=== PATIENT | male | born 1945 | race Caucasian/White ===

== ENCOUNTER → 2017-05-25 08:08 | Outpatient (CLI) | payer MEDICARE ==
[2014-07-14 10:56] VITALS: BMI 29.4
[~2017-05-25 08:08] MED LIST: APIDRA SOL100 UNIT/1 SQ; APIDRA100 U/M1 SQ; ASPIRIN 81 MG E81 MG PO; ASPIRIN325 MG PO; BAYER CHEWABLE81 MG PO; CORDARONE200 MG PO; COREG6.25 MG PO; GLIPIZIDE10 MG PO; GLUCOPHAGE1000 MG PO; GLUCOSAMINE & C1 CAP PO; HUMULIN R100 U/ML SC; JANUVIA100 MG PO; K-DUR20 MEQ PO; LANTUS INSULIN10 ML SC; LASIX40 MG PO; NORCO 10/325 TA1 TA1 PO; OMNICEF300 MG PO; PLAVIX75 MG PO; PRAVACHOL40 MG PO; SENOKOT-S TABLE1 TAB PO; TOPROL XL100 MG PO; TYLENOL 325 MG325 MG PO; ULTRAM50 MG PO; VASOTEC10 MG PO; ZANTAC150 MG PO; ZESTORETIC 20/11 TAB PO; ZITHROMAX500 MG PO
[2017-05-25 08:28] LABS: BASOPHILS 1.2 % (0-2); EOSINOPHILS 6.3 % (0-7); HEMATOCRIT 42.2 % (42.0-54.0); IMMATURE GRANULOCYTES 0.1 % (0-5); LYMPHOCYTES 44.4 % (15-50); MCH 30.4 pg (26.0-34.0); MCHC 33.2 g/dL (31.0-37.0); MCV 91.5 fL (80.0-100.0); MEAN PLATELET VOLUME 11.7 fL (7.4-10.4); MONOCYTES 12.3 % (2-11); NEUTROPHILS 35.7 % (40-80); PLATELET COUNT 209 10x3/uL (130-400); RBC 4.61 10x6/uL (4.20-6.10); RDW 13.2 % (11.5-14.5); WBC 8.7 10x3/uL (4.8-10.8)
[2017-05-25 08:39] LABS: APPEARANCE CLEAR (CLEAR); BILIRUBIN NEGATIVE (NEGATIVE); COLOR YELLOW (YELLOW); GLUCOSE NEGATIVE (NEGATIVE); KETONE MODERATE mg/dL (NEGATIVE); LEUKOCYTE ESTERASE NEGATIVE (NEGATIVE); NITRITE NEGATIVE (NEGATIVE); PROTEIN NEGATIVE (NEGATIVE); SPECIFIC GRAVITY 1.015 (1.005-1.020)
[2017-05-25 09:08] LABS: ALBUMIN 3.9 g/dL (3.4-5.0); ALKALINE PHOSPHATASE 87 U/L (46-116); ALT (SGPT) 56 U/L (10-68); BILIRUBIN - TOTAL 0.56 mg/dL (0.2-1.3); CALCIUM 9.1 mg/dL (8.5-10.1); CARBON DIOXIDE 29.7 mmol/L (21.0-32.0); CHLORIDE - SERUM 105 mmol/L (98-107); CHOL - HDL RATIO 3.1 ratio (2.3-4.9); CHOLESTEROL, TOTAL 127 mg/dL (0-200); CREATININE - SERUM 0.9 mg/dL (0.6-1.3); HDL CHOLESTEROL 41 mg/dL (32-96); LDL CHOLESTEROL 67 mg/dL (0-100); LDL-HDL RATIO 1.6 ratio (1.5-3.5); POTASSIUM - SERUM 3.9 mmol/L (3.5-5.1); PROTEIN - SERUM 7.9 g/dL (6.4-8.2); SODIUM 143 mmol/L (136-145); THYROID STIMULATING HORMONE 2.13 uIU/mL (0.36-3.74); TRIGLYCERIDE 96 mg/dL (30-200); UREA NITROGEN 19 mg/dL (7-18); eGFR NON AFRICAN AMERICAN 89 mL/min (90-120)
[2017-05-25 09:10] LABS: CALC OSMOLALITY 288 mosm/kg (275-300); GLUCOSE 136 mg/dL (74-106)
== END | disposition home or self-care (01) ==
LOC: D.LAB 08:08
PROVIDERS: Family Medicine
DX: Z00.00 Encounter for general adult medical examination without abnormal findings (principal); Z12.5 Encounter for screening for malignant neoplasm of prostate; I10 Essential (primary) hypertension; E78.5 Hyperlipidemia, unspecified; E11.9 Type 2 diabetes mellitus without complications; I25.10 Atherosclerotic heart disease of native coronary artery without angina pectoris

== ENCOUNTER 2018-01-20 05:52 | Outpatient (CLI) | payer MEDICARE ==
[~2018-01-20] VITALS: Ht 182.9 cm; Wt 86.4 kg
--- NOTE | ~2018-01-20 | HEMODYNAMI ---
PATIENT:AGUILA YBARRA MEDICAL RECORD: [id number] : 49 LOCATION:[facility] ADMISSION DATE: 01/20/18 Generatedon:01/20/20188:24 Patient name: AGUILA YBARRA Patient #: [id number] SSN: DO B: 1945 Date of study: 01/20/2018 Page: Of Hemodynamic Procedure Report Patient Data Patient Demographics Procedure consent was obtained First Name: AGUILA Gender: Male Last Name: AMADA : 1945 Middle Initial: A Age: 72 year(s) Patient #: [id number] Race: Unknown Additional ID: [id number] Contact details Address: [address] [place] [address] [facility] [place] [facility] Zip code: [address] Past Medical History Allergies: No known allergies Admission Admission Data Admission Date: 01/20/2018 Admission Time: 5:52 Height (in.): 72 BSA: 2.09 (m2) Height (cm.): 182.88 BMI: 25.82 (kg/m2) Weight (lbs.): 190.39 Weight (kg.): 86.36 Lab Results Lab Result Date: 01/20/2018 Lab Result Time: 0:00 Biochemistry Name Units Result Min Max BUN mg/dl 26 --(----)-* 7 18 Creatinine mg/dl 1 --(--*-)-- 0.6 1.3 CBC Name Units Result Min Max Hemoglobin g/dl 14.6 --(-*--)-- 13.5 17.5 Platelets 10^3/l 184 --(*---)-- 130 400 Procedure Procedure Types Cath Procedure Peripheral Cath Diagnostic Procedure Cath Peripheral Gtljc-Bdseewj-Gbh-Off Procedure Description Procedure Date Procedure Date: 01/20/2018 Procedure Start Time: 8:07 Procedure End Time: 8:23 Procedure Staff Name Function Arden Vu MD Performing Physician Bradley Zelaya RT Monitor Katrina Hurtado RT Scrub Lawrence Jovel RN Nurse Valdemar Fisher RN Nurse Procedure Data Cath Procedure Fluoroscopy Diagnostic fluoroscopy Total fluoroscopy Time: 1.2 time: 1.2 min min Diagnostic fluoroscopy Total fluoroscopy dose: 230 dose: 230 mGy mGy Contrast Material Contrast Material Type Amount (ml) Isovue 300 90 Entry Location Entry Primary Successful Side Size Upsize Upsize Entry Closure Succes sful Closure Location (Fr) 1 (Fr) 2 (Fr) Remarks Device Remarks Femoral Right 5 Fr Exoseal artery Estimated blood loss: 10 ml Diagnostic catheters Device Type Used For End Catheter Placement DIAGNOSTIC UF 5Fr Procedure catheter ([id number]) Procedure Complications No complications Procedure Medications Medication Administration Route Dosage Oxygen etCO2 Nasal cannula 2 l/min Heparin Flush Bag added to field 2 bags (1000units/500ml NS) 0.9% NaCl I.V. 100 ml/hr Fentanyl I.V. 50 mcg Versed I.V. 1 mg Fentanyl I.V. 25 mcg Versed I.V. 0.5 mg Fentanyl I.V. 25 mcg Versed I.V. 0.5 mg Hemodynamics Rest BSA: 2.09 (m2) HGB: 14.6 (g/dl) O2 Consumption: Estimated: 236.38 (ml/min) O2 Co nsumption indexed: Estimated:113.1 (ml/min/m) Heart Rate: 63 (bpm) Pressure Samples Time Site Value (mmHg) Purpose Heart Use Rate(bpm) 8:10 AO 177/76(114) Snapshot 65 8:13 AO 124/58(83) Snapshot 63 Snapshots Pre Cath Intra NCS Post Cath Vital Signs Time Heart Resp SPO2 etCO2 NIBP (mmHg) Rhythm Pain Sedation Rate (ipm) (%) (mmHg) Status Level (bpm) 7:51:21 64 16 96 0 153/82(109) NSR 0 (11) 10(A) , No pain 7:56:04 61 16 98 27.8 150/82(129) NSR 0 (11) 10(A) , No pain 8:01:21 63 15 100 33.8 164/83(134) NSR 0 (11) 9(A) , No pain 8:06:02 64 16 100 20.3 146/81(119) NSR 0 (11) 9(A) , No pain 8:11:23 62 17 100 38.3 163/84(144) NSR 0 (11) 9(A) , No pain 8:16:04 73 17 100 1.5 141/84(93) NSR 0 (11) 9(A) , No pain 8:19:35 64 6 40.6 154/88(133) NSR 0 (11) 9(A) , No pain Medications Time Medication Route Dose Verified Delivered Reason Notes Effec tiveness by by 7:55:51 Oxygen etCO2 2 Arden Lawrence Per Nasal l/min Horace Jovel RN physician cannula 7:56:07 Heparin Flush added 2 Arden Lawrence used for Bag to bags Horace Jovel safety compliance specialist (1000units/500ml field NS) 7:56:30 0.9% NaCl I.V. 100 Arden Lawrence Per ml/hr Horace Jovel RN physician 8:00:03 Fentanyl I.V. 50 Arden Lawrence for mcg Horace Jovel RN sedation 8:00:10 Versed I.V. 1 mg Arden Lawrence for Horace Jovel RN sedation 8:07:34 Fentanyl I.V. 25 Arden Lawrence for mcg Horace Jovel RN sedation 8:07:41 Versed I.V. 0.5 Arden Lawrence for mg Horace Jovel RN sedation 8:09:40 Fentanyl I.V. 25 Arden Lawrence for mcg Horace Jovel RN sedation 8:09:45 Versed I.V. 0.5 Arden Lawrence for mg Horace Jovel RN sedation Procedure Log Time Note 7:24:07 Time tracking: Regular hours (M-F 7:00 - 5:00) 7:24:11 Plan of Care:Hemodynamics will remain stable., Cardiac rhythm will remain stable., Comfort level will be maintained., Respiratory function will remain adequate., Patient/ family verbilizes understanding of procedure., Procedure tolerated without complication., Recovers from procedure without complications.. 7:24:13 Signed procedure consent form obtained from patient. 7:24:20 H&P Date Dictated: 01/14/2018 Within 30 days and on chart., H&P Addendum completed by physician on day of procedure. (MUST COMPLETE FOR ALL OUTPATIENTS). 7:30:41 Bradley LOCKWOOD(R) sent for patient. Start room use. 7:36:36 Patient allergic to No known allergies 7:44:33 Patient received from Pre/Post Procedure Room to CCL 1 Alert and oriented. Tansferred to table in Supine position. 7:44:35 Warm blankets applied, and richard hugger turned on for patient comfort. 7:44:36 Correct patient and procedure confirmed by team. 7:44:36 ECG and BP/O2 sat monitors applied to patient. 7:49:27 Pre-procedure instructions explained to patient. 7:49:28 Pre-op teaching completed and patient verbalized understanding. 7:49:30 Family in patients room. 7:49:31 Patient NPO since Midnight. 7:49:34 Is the patient allergic to Iodine/contrast media? No. 7:49:35 Is patient on blood thinner?No 7:49:40 Patient diabetic? Yes. 7:49:41 If diabetic: On Metformin? Yes 7:49:45 If on Metformin: Last Dose? 01/17/2018 7:49:48 Previous problem with sedation/anesthesia? No ? 7:49:49 Snore? Yes 7:49:50 Sleep apnea? No 7:49:51 Deviated septum? No 7:49:52 Opens mouth fully? Yes 7:49:53 Sticks out tongue? Yes 7:49:54 Airway obstruction? No ? 7:49:56 Dentures? No ? 7:49:59 Pre procedure: right dorsailis pedis pulse 1+ Palpable, but thready & weak; easily obliterated 7:49:59 Vital chart was started 7:50:02 Vital chart was stopped 7:50:03 Pre procedure: left dorsailis pedis pulse 2+ Normal; easily identifiable; not easily obliterated 7:50:18 Patient pain scale 0/10 ?. 7:50:26 Vital chart was started 7:50:29 IV patent on arrival in left forearm with 0.9% NaCl at KVO. 7:50:35 Lab results completed and on chart. 7:50:57 Bilateral groins area was prepped with chlora-prep and draped in sterile fashion 7:50:58 Alarms reviewed by R. N. 7:50:59 Sharps counted by scrub and verified by R.N. 7:51:52 Use device set Femoral Dx 7:51:54 PERCUTANEOUS ENTRY 19GA needle opened to sterile field. 7:51:55 Tegaderm 4 x 4 (1626W) opened to sterile field. 7:51:56 ACIST Manifold (16717) opened to sterile field. 7:51:57 ACIST Hand Control (47673) opened to sterile field. 7:51:58 ACIST Syringe (98683) opened to sterile field. 7:51:59 Bag Decanter (2001S) opened to sterile field. 7:51:59 Medline Cath Pack ([id number]) opened to sterile field. 7:52:00 DIAGNOSTIC WIRE .035 260cm J wire (539893) opened to sterile field. 7:52:01 SHEATH Prelude 5Fr 0.035 ([id number]-5Y-[id number]) opened to sterile field. 7:54:29 Baseline sample Acquired. 7:54:49 Rhythm: sinus rhythm 7:54:52 Full Disclosure recording started 7:55:51 Oxygen 2 l/min etCO2 Nasal cannula was administered by Lawrence Jovel RN; Per physician; 7:56:07 Heparin Flush Bag (1000units/500ml NS) 2 bags added to field was administered by Lawrence Jovel RN; used for procedure; 7:56:30 0.9% NaCl 100 ml/hr I.V. was administered by Lawrence Jovel RN; Per physician; 7:56:34 Lab Result : Hemoglobin 14.6 g/dl 7:56:34 Lab Result : Platelets 184 10^3/l 7:56:34 Lab Result : BUN 26 mg/dl 7:56:34 Lab Result : Creatinine 1 mg/dl 7:56:42 Patient Height : 72 inches 7:56:47 Patient Weight : 190.39 lbs 7:59:27 --------ALL STOP TIME OUT------ 7:59:28 Final Timeout: patient, procedure, and site verified with staff and physician. All members of the team are in agreement. 7:59:36 Bilateral groins site verified by team. 7:59:41 Physical assessment completed. ASA score P 2 - A patient with mild systemic disease as per Aredn Vu MD. 7:59:47 Sedation plan: IV Moderate Sedation Medication:Versed, Fentanyl 8:00:03 Fentanyl 50 mcg I.V. was administered by Lawrence Jovel RN; for sedation; 8:00:10 Versed 1 mg I.V. was administered by Lawrence Jovel RN; for sedation; 8:04:49 Zero performed for pressure channel P1 8:07:06 Procedure started. 8:07:10 Local anesthetic to right femoral artery with Lidocaine 2% by Arden Vu MD.INITIAL ACCESS ONLY 8:07:34 Fentanyl 25 mcg I.V. was administered by Lawrence Jovel RN; for sedation; 8:07:41 Versed 0.5 mg I.V. was administered by Lawrence Jovel RN; for sedation; 8::34 A 5 Fr sheath was inserted into the Right Femoral artery 8:09:40 Fentanyl 25 mcg I.V. was administered by Lawrence Jovel RN; for sedation; 8:09:45 Versed 0.5 mg I.V. was administered by Lawrence Jovel RN; for sedation; 8:10:04 A DIAGNOSTIC UF 5Fr catheter ([id number]) was advanced over the wire and used for Procedure. 8:11:08 Abdominal Aortagram was performed. 8:12:16 Left leg runoff performed. 8:13:43 Right leg runoff performed. 8:16:17 Catheter removed. 8:16:20 EXOSEAL 5Fr (EX500) opened to sterile field. 8:16:37 Sheath removed intact; hemostasis achieved with Exoseal to the Right Femoral artery. 8:16:49 Procedure ended.(Physican Out) 8:22:11 Fluoroscopy time 01.20 minutes. 8:22:14 Fluoroscopy dose: 230 mGy 8:22:14 Flurop Dose total: 230 8:22:18 Contrast amount:Isovue 300 90ml. 8:22:19 Sharps counted by scrub and verified by R.N. 8:22:33 Insertion/operative site no bleeding no hematoma. 8:22:39 Post-op/insertion site Right Femoral artery dressed using a 4 x 4 and Tegaderm. 8:22:41 Post Procedure Pulses reassessed and unchanged 8:22:45 Post-procedure physical assessment completed. ASA score P 2 - A patient with mild systemic disease as per Arden Vu MD. 8:22:48 Post procedure rhythm: unchanged. 8:22:51 Estimated blood loss: 10 ml 8:22:53 Post procedure instruction explained to patient.Patient verbalizes understanding. 8:22:53 Patient needs reinforcement of post procedure teaching. 8:23:02 Procedure and supply charges have been captured, reviewed, submitted and are correct. 8:23:05 Procedure Complication : No complications 8:23:31 See physician's report for complete and final results. 8:23:33 Report given to Pre/Post Procedure Room. 8:23:36 Patient transfered to Pre/Post Procedure Room with Stretcher. 8:23:38 Procedure ended. 8:23:38 Full Disclosure recording stopped 8:23:42 End room use (Document Last) 8:24:15 Vital chart was stopped Device Usage Item Name Manufacture Quantity Catalog Number Hospital Part Current M inimal Lot# / Charge Number Stock Stock Serial# Code PERCUTANEOUS [employer] 1 [id number] 5 ENTRY 19GA needle Tegaderm 4 x 4 3M 1 1626W 190570 708909 254639 5 (1626W) ACIST Manifold Acist 1 22972 815026 846236 812212 5 (54954) [employer] ACIST Hand Acist 1 90681 390512 515886 423173 5 Control (34375) [employer] ACIST Syringe Acist 1 69481 259349 398202 848510 2 0 (55484) [employer] Bag Decanter Microtek 1 2002S 473153 35172 981667 5 (2002S) Medical Inc. Medline Cath Cardinal 1 [id number] 537964 93743 832710 5 Pack Health ([id number]) DIAGNOSTIC WIRE [facility] 1 912645 909527 231651 442667 3 0 .035 260cm J wire (846835) SHEATH Prelude Merit 1 SVC-9V-49-035 642305 149703 611728 5 5Fr 0.035 Medical (EPT-5V-62-035) DIAGNOSTIC UF Cardinal 1 [id number] 768374 899168 469387 1 0 5Fr catheter Health (608912N3) EXOSEAL 5Fr Cardinal 1 EX500 613562 739713 735093 1 0 (EX500) Health Signature Audit [place] Stage Time Signature Unsigned Intra-Procedure 01/20/2018 Bradley Zelaya 8:24:12 AM RT(R) Signatures Monitor : Bradley Zelaya RT Signature : Date : Time : [id number] [place] [address]
[2018-01-20] MEDS ORDERED: LEVEMIR100 U/M1 SC (06:38)
[2018-01-20] MEDS ORDERED: GLUCOPHAGE500 MG PO (06:40)
[2018-01-20 06:54] VITALS: BP 169/85; Ht 182.9 cm; Wt 86.4 kg
[2018-01-20 07:30] LABS: BASOPHILS 1.4 % (0-2); EOSINOPHILS 5.8 % (0-7); HEMATOCRIT 44.5 % (42.0-54.0); HEMOGLOBIN 14.6 g/dL (13.5-17.5); IMMATURE GRANULOCYTES 0.4 % (0-5); LYMPHOCYTES 37.9 % (15-50); MCH 28.7 pg (26.0-34.0); MCHC 32.8 g/dL (31.0-37.0); MCV 87.4 fL (80.0-100.0); MEAN PLATELET VOLUME 12.6 fL (7.4-10.4); MONOCYTES 10.9 % (2-11); NEUTROPHILS 43.6 % (40-80); PLATELET COUNT 184 10x3/uL (130-400); RBC 5.09 10x6/uL (4.20-6.10); RDW 14.2 % (11.5-14.5); WBC 9.6 10x3/uL (4.8-10.8)
[2018-01-20 07:41] LABS: CALC OSMOLALITY 284 mosm/kg (275-300); CARBON DIOXIDE 27.5 mmol/L (21.0-32.0); CHLORIDE - SERUM 100 mmol/L (98-107); GLUCOSE 309 mg/dL (74-106); SODIUM 134 mmol/L (136-145); UREA NITROGEN 26 mg/dL (7-18); eGFR NON AFRICAN AMERICAN 78 mL/min (90-120)
== END 2018-01-20 11:00 | disposition home or self-care (01) ==
LOC: D.CATH 05:52
PROVIDERS: Internal Medicine Cardiovascular Disease
DX: M79.605 Pain in left leg (principal); M79.604 Pain in right leg; Z01.812 Encounter for preprocedural laboratory examination

== ENCOUNTER → 2018-02-28 13:45 | Outpatient (CLI) | payer MEDICARE ==
[2018-01-20 06:54] VITALS: BMI 25.8
[~2018-02-28 13:45] MED LIST changes: +GLUCOPHAGE500 MG PO; +LEVEMIR100 U/M1 SC
== END | disposition home or self-care (01) ==
LOC: D.US 13:45
DX: I65.23 Occlusion and stenosis of bilateral carotid arteries (principal)

== ENCOUNTER → 2018-11-21 14:29 | Outpatient (CLI) | payer MEDICARE ==
[2018-01-20 06:54] VITALS: BMI 25.8
== END | disposition home or self-care (01) ==
LOC: D.CT 14:29
PROVIDERS: ATTEND Family Medicine
DX: J98.59 Other diseases of mediastinum, not elsewhere classified (principal)

== ENCOUNTER → 2018-11-25 09:08 | Outpatient (CLI) | payer MEDICARE ==
[2018-01-20 06:54] VITALS: BMI 25.8
== END | disposition home or self-care (01) ==
LOC: D.HCCARDIO 09:08
PROVIDERS: ATTEND Internal Medicine Cardiovascular Disease
DX: I25.709 Atherosclerosis of coronary artery bypass graft(s), unspecified, with unspecified angina pectoris (principal)

== ENCOUNTER → 2018-12-07 10:56 | Outpatient (CLI) | payer MEDICARE ==
[~2018-12-07] VITALS: Ht 182.9 cm; Wt 96.4 kg
--- NOTE | ~2018-12-07 | HEMODYNAMI ---
PATIENT:AGUILA YBARRA MEDICAL RECORD: [id number] : 49 LOCATION:[facility] ADMISSION DATE: 12/07/18 Generatedon:12/07/201814:11 Patient name: AGUILA YBARRA Patient #: [id number] SSN: DO B: 1945 Date of study: 12/07/2018 Page: Of Hemodynamic Procedure Report Patient Data Patient Demographics Procedure consent was obtained First Name: AGUILA Gender: Male Last Name: AMADA : 1945 Middle Initial: A Age: 73 year(s) Patient #: [id number] Race: Unknown Additional ID: [id number] Contact details Address: [address] [place] [address] State: [place] City: [place] Zip code: [address] Past Medical History Allergies: No known allergies Admission Admission Data Admission Date: 12/07/2018 Admission Time: 10:56 Height (in.): 71.65 BSA: 2.18 (m2) Height (cm.): 182 BMI: 29.03 (kg/m2) Weight (lbs.): 212 Weight (kg.): 96.16 Lab Results Lab Result Date: 12/07/2018 Lab Result Time: 0:00 Biochemistry Name Units Result Min Max BUN mg/dl 16 --(---*)-- 7 18 Creatinine mg/dl 0.9 --(-*--)-- 0.6 1.3 CBC Name Units Result Min Max Hematocrit % 41.8 -*(----)-- 42 54 Hemoglobin g/dl 13.8 --(*---)-- 13.5 17.5 Procedure Procedure Types Cath Procedure Diagnostic Procedure LHC LHC w/Coronaries w/Grafts Sedation Charges Moderate Sedation up to 15 minutes Procedure Description Procedure Date Procedure Date: 12/07/2018 Procedure Start Time: 13:46 Procedure End Time: 14:09 Procedure Staff Name Function Arden Vu MD Performing Physician Katrina Hurtado RT Monitor Tahmina Cordero RN Nurse Bradley Zelaya RT Scrub Procedure Data Cath Procedure Fluoroscopy Diagnostic fluoroscopy Total fluoroscopy Time: 3.3 time: 3.3 min min Diagnostic fluoroscopy Total fluoroscopy dose: dose: 488.13 mGy 488.13 mGy Contrast Material Contrast Material Type Amount (ml) Isovue 300 118 Entry Location Entry Primary Successful Side Size Upsize Upsize Entry Closure Succes sful Closure Location (Fr) 1 (Fr) 2 (Fr) Remarks Device Remarks Femoral Right 5 Fr Exoseal artery Estimated blood loss: 10 ml Diagnostic catheters Device Type Used For End Catheter Placement MULTIPACK JL 4.0 5Fr Procedure catheter DIAGNOSTIC AR MOD 5Fr Procedure Catheter ([id number]) DIAGNOSTIC IM 5Fr Procedure catheter ([id number]) MULTIPACK Pigtail 5 Fr Procedure catheter Procedure Complications No complications Procedure Medications Medication Administration Route Dosage 0.9% NaCl I.V. 100 ml/hr Oxygen etCO2 Nasal cannula 2 l/min Lidocaine 2% added to field 20 Heparin Flush Bag added to field 2 bags (1000units/500ml NS) Versed I.V. 2 mg Fentanyl I.V. 50 mcg Versed I.V. 2 mg Fentanyl I.V. 50 mcg Hemodynamics Rest BSA: 2.18 (m2) HGB: 13.8 (g/dl) O2 Consumption: Estimated: 246.02 (ml/min) O2 Co nsumption indexed: Estimated:112.85 (ml/min/m) Heart Rate: 63 (bpm) Pressure Samples Time Site Value (mmHg) Purpose Heart Use Rate(bpm) 14:03 LV 135/4,13 Snapshot 59 14:05 AO 143/65(93) Pullback 59 14:05 LV 139/9,19 Pullback 59 Gradients Valve Time Site 1 Site 2 Mean SEP/DFP Peak To Heart Use (mmHg) (sec/min) Peak Rate (mmHg) (bpm) Aortic 14:05 LV AO 0 5 0 59 139/9,19 143/65(93) Calculations Valve P-P Mean Valve Index Valve Source Name Gradient Area Flow (cm2) Aortic 0 0 0 0 Snapshots Pre Cath Intra NCS Post Cath Vital Signs Time Heart Resp SPO2 etCO2 NIBP (mmHg) Rhythm Pain Sedation Rate (ipm) (%) (mmHg) Status Level (bpm) 13:33:51 62 16 98 31 157/88(131) NSR 0 (11) 10(A) , No pain 13:38:29 60 13 98 30 152/82(127) NSR 0 (11) 10(A) , No pain 13:42:57 62 16 96 20 140/85(123) NSR 0 (11) 10(A) , No pain 13:47:23 60 10 98 32.5 142/82(118) NSR 0 (11) 9(A) , No pain 13:51:52 59 14 98 18.1 135/77(114) SB 0 (11) 9(A) , No pain 13:56:20 59 17 98 40.1 148/80(124) SB 0 (11) 9(A) , No pain 14:01:44 59 18 96 15.9 144/78(122) SB 0 (11) 9(A) , No pain 14:06:08 59 17 97 30.2 139/79(111) SB 0 (11) 10(A) , No pain 14:10:36 58 7 98 36.3 139/80(120) SB 0 (11) 10(A) , No pain Medications Time Medication Route Dose Verified Delivered Reason Notes Eff ectiveness by by 13:32:43 0.9% NaCl I.V. 100 Arden Tahmina used for ml/hr Horace Cordero employment supervisor 13:32:50 Oxygen etCO2 2 Arden Tahmina used for Nasal l/min Horace Cordero procedure cannula RN 13:32:55 Lidocaine 2% added 20ml Arden Arden for local to vial Horace Vu MD anesthetic field 13:33:02 Heparin Flush added 2 Arden Tahmina used for Bag to bags Horace Cordero procedure (1000units/500ml field RN NS) 13:37:39 Versed I.V. 2 mg Arden Tahmina for Horace Cordero sedation RN 13:37:49 Fentanyl I.V. 50 Arden Tahmina for mcg Horace Cordero sedation RN 13:41:57 Versed I.V. 2 mg Arden Tahmina for Horace Cordero sedation RN 13:42:08 Fentanyl I.V. 50 Arden Tahmina for mcg Horace Cordero sedation surgical scrub technician Log Time Note 13:15:22 Signed procedure consent form obtained from patient. 13:15:23 Diagnostic Cath status Elective 13:15:25 Time tracking: Regular hours (M-F 7:00 - 5:00) 13:15:29 Plan of Care:Hemodynamics will remain stable., Cardiac rhythm will remain stable., Comfort level will be maintained., Respiratory function will remain adequate., Patient/ family verbilizes understanding of procedure., Procedure tolerated without complication., Recovers from procedure without complications.. 13:15:32 Bradley Zelaya RT(R) sent for patient. Start room use. 13:15:42 H&P Date Dictated: 11/22/2018 Within 30 days and on chart., H&P Addendum completed by physician on day of procedure. (MUST COMPLETE FOR ALL OUTPATIENTS). 13:15:50 Patient allergic to No known allergies 13:18:27 Patient Height : 71.65 inches 13:18:32 Patient Weight : 212 lbs 13:19:20 Lab Result : BUN 16 mg/dl 13:19:20 Lab Result : Hemoglobin 13.8 g/dl 13:19:20 Lab Result : Creatinine 0.9 mg/dl 13:19:20 Lab Result : Hematocrit 41.8 % 13:26:59 Patient received from Pre/Post Procedure Room to [facility] 3 Alert and oriented. Tansferred to table in Supine position. 13:27:00 Warm blankets applied, and richard hugger turned on for patient comfort. 13:27:01 Correct patient and procedure confirmed by team. 13:27:03 ECG and BP/O2 sat monitors applied to patient. 13:32:16 Vital chart was started 13:32:43 0.9% NaCl 100 ml/hr I.V. was administered by Tahmina Cordero RN; used for procedure; 13:32:50 Oxygen 2 l/min etCO2 Nasal cannula was administered by Tahmina Cordero RN; used for procedure; 13:32:55 Lidocaine 2% 20ml vial added to field was administered by Arden Vu MD; for local anesthetic; 13:33:02 Heparin Flush Bag (1000units/500ml NS) 2 bags added to field was administered by Tahmina Cordero RN; used for procedure; 13:34:48 Baseline sample Acquired. 13:34:52 Rhythm: sinus rhythm 13:34:53 Full Disclosure recording started 13:34:53 Pre-procedure instructions explained to patient. 13:34:54 Pre-op teaching completed and patient verbalized understanding. 13:34:55 Family in patients room. 13:34:56 Patient NPO since Midnight. 13:35:02 Is patient on blood thinner?No 13:35:04 Patient diabetic? Yes. 13:35:06 If diabetic: On Metformin? Yes 13:35:10 If on Metformin: Last Dose? 12/06/2018 13:35:24 Previous problem with sedation/anesthesia? No ? 13:35:25 Snore? Yes 13:35:28 Sleep apnea? No 13:35:30 Deviated septum? No 13:35:31 Opens mouth fully? Yes 13:35:33 Sticks out tongue? Yes 13:35:35 Airway obstruction? No ? 13:35:38 Dentures? No ? 13:35:40 Pre procedure: right dorsailis pedis pulse 1+ Palpable, but thready & weak; easily obliterated 13:35:44 Patient pain scale 0/10 ?. 13:35:49 IV patent on arrival in left hand with 0.9% NaCl at O. 13:35:51 Lab results completed and on chart. 13:35:54 Right groin area was prepped with chlora-prep and draped in sterile fashion 13:35:55 Alarms reviewed by R. N. 13:35:55 Sharps counted by scrub and verified by R.N. 13:35:57 Use device set Femoral Dx 13:35:58 ACIST Syringe (26323) opened to sterile field. 13:35:59 Bag Decanter (2002S) opened to sterile field. 13:36:00 ACIST Hand Control (81511) opened to sterile field. 13:36:00 ACIST Manifold (14474) opened to sterile field. 13:36:01 Tegaderm 4 x 4 (1626W) opened to sterile field. 13:36:02 Medline Cath Pack ([id number]) opened to sterile field. 13:36:02 DIAGNOSTIC WIRE .035 260cm J wire (455314) opened to sterile field. 13:36:03 DIAGNOSTIC Multipack 5Fr catheter set (PN9648) opened to sterile field. 13:36:04 SHEATH 5FR Houston (LGM434) opened to sterile field. 13:36:53 --------ALL STOP TIME OUT------ 13:36:54 Final Timeout: patient, procedure, and site verified with staff and physician. All members of the team are in agreement. 13:36:55 Right groin site verified by team. 13:36:58 Maximum allowable Isovue 300 dose 300ml. Physician notified. (300ml for normal creatinines. For patients with creatinine of 1.7 or higher multiply weight(kg) x 5 divided by creatinine.) 13:37:02 Fire Safety Assessment: A--An alcohol-based skin anteseptic being used preoperatively., C--Open oxygen or nitrous oxide is being used., D--An ESU, laser, or fiber-optic light is being used. 13:37:04 Physical assessment completed. ASA score P 2 - A patient with mild systemic disease as per Arden Vu MD. 13:37:06 Sedation plan: IV Moderate Sedation Medication:Versed, Fentanyl 13:37:39 Versed 2 mg I.V. was administered by Tahmina Cordero RN; for sedation; 13:37:49 Fentanyl 50 mcg I.V. was administered by Tahmina Cordero RN; for sedation; 13:41:20 Zero performed for pressure channel P1 13:41:57 Versed 2 mg I.V. was administered by Tahmina Cordero RN; for sedation; 13:42:08 Fentanyl 50 mcg I.V. was administered by Tahmina Cordero RN; for sedation; 13:46:20 Procedure started. 13:46:24 Local anesthetic to right femoral artery with Lidocaine 2% by Arden Vu MD.INITIAL ACCESS ONLY 13:49:47 A 5 Fr sheath was inserted into the Right Femoral artery 13:52:44 A MULTIPACK JL 4.0 5Fr catheter was advanced over the wire and used for Procedure. 13:54:39 LCA angiography performed. 13:54:45 Catheter exchanged over wire. 13:55:49 A DIAGNOSTIC AR MOD 5Fr Catheter ([id number]) was advanced over the wire and used for Procedure. 13:56:27 RCA angiography performed. 13:56:43 SVG to RCA angiography performed. 13:58:16 SVG TO om1, om2,om3 angiography performed 13:58:46 Catheter exchanged over wire. 13:58:55 A DIAGNOSTIC IM 5Fr catheter ([id number]) was advanced over the wire and used for Procedure. 14:00:30 RITTER to LAD angiography performed. 14:02:15 Catheter exchanged over wire. 14:02:41 A MULTIPACK Pigtail 5 Fr catheter was advanced over the wire and used for Procedure. 14:03:12 LV gram done using SPRING 14:03:15 Injector settings: Ml/sec: 10, Volume: 20, 14:03:25 LV hemodynamics recorded. 14:04:10 LV gram done using SPRING 14:04:16 EF : 30 % 14:05:13 Catheter removed. 14:05:20 EXOSEAL 5Fr (EX500) opened to sterile field. 14:06:13 Sheath removed intact; hemostasis achieved with Exoseal to the Right Femoral artery. 14:07:15 Procedure ended.(Physican Out) 14:07:24 Fluoroscopy time 03.30 minutes. 14:07:31 Fluoroscopy dose: 488.13 mGy 14:07:31 Flurop Dose total: 488.13 14:07:35 Contrast amount:Isovue 300 118ml. 14:07:36 Sharps counted by scrub and verified by R.N. 14:07:40 Post-op/insertion site Right Femoral artery dressed using a 4 x 4 and Tegaderm. 14:07:42 Post-procedure physical assessment completed. ASA score P 2 - A patient with mild systemic disease as per Arden Vu MD. 14:07:47 Post procedure rhythm: sinus rhythm 14:07:51 Estimated blood loss: 10 ml 14:07:53 Post procedure instruction explained to patient.Patient verbalizes understanding. 14:07:53 Patient needs reinforcement of post procedure teaching. 14:08:53 Procedure type changed to Cath procedure, Diagnostic procedure, LHC, LHC w/Coronaries w/Grafts, Sedation Charges, Moderate Sedation up to 15 minutes 14:09:31 Procedure and supply charges have been captured, reviewed, submitted and are correct. 14:09:33 Procedure Complication : No complications 14:09:35 Vital chart was stopped 14:09:35 See physician's report for complete and final results. 14:09:37 Report given to Pre/Post Procedure Room. 14:09:41 Patient transfered to Pre/Post Procedure Room with Bed. 14:09:43 Procedure ended. 14:09:43 Full Disclosure recording stopped 14:09:49 End room use (Document Last) Device Usage Item Name Manufacture Quantity Catalog Hospital Part Current Minimal L ot# / Number Charge Number Stock Stock Serial# Code ACIST Acist 1 99204 618299 793555 356481 20 Syringe Medical (77083) Systems Inc Bag Microtek 1 2001S 298768 40439 517340 5 Decanter Medical Inc. () ACIST Hand Acist 1 84013 309139 807954 423566 5 Control Medical (17461) Systems Inc ACIST Acist 1 37759 677169 776948 011480 5 Manifold Medical (80167) Systems Inc Tegaderm 4 3M 1 1626W 101350 129955 619508 5 x 4 (1626W) Medline Medline 1 [id number] 289137 18757 694016 5 Cath Pack ([id number]) DIAGNOSTIC St Micah 1 966231 210565 566900 825624 30 WIRE .035 260cm J wire (122750) DIAGNOSTIC Cardinal 1 OX1845 838086 30587 187997 30 Multipack Health 5Fr catheter set (FR1723) SHEATH 5FR Terumo 1 SVU320 724047 102683 549084 5 [place] (TGS984) MULTIPACK Cardinal 1 481470 5 JL 4.0 5Fr Health catheter DIAGNOSTIC Cardinal 1 [id number] 682864 936677 563703 15 AR MOD 5Fr Health Catheter (588034O) DIAGNOSTIC Cardinal 1 [id number] 325619 087217 047234 5 IM 5Fr Health catheter (519335Y) MULTIPACK Cardinal 1 552137 5 Pigtail 5 Health Fr catheter EXOSEAL 5Fr Cardinal 1 EX500 659241 386221 805161 10 (EX500) Health Signature Audit [place] Stage Time Signature Unsigned Intra-Procedure 12/07/2018 Katrina Hurtado 2:10:54 PM RT(R) Signatures Monitor : Katrina Hurtado Signature : RT Date : Time : [address] [place] [address]
[2018-12-07 11:22] VITALS: BP 158/83; Ht 182.9 cm; Wt 96.4 kg
[2018-12-07 11:34] LABS: BASOPHILS 0.8 % (0-2); EOSINOPHILS 3.2 % (0-7); HEMATOCRIT 41.8 % (42.0-54.0); HEMOGLOBIN 13.8 g/dL (13.5-17.5); IMMATURE GRANULOCYTES 0.3 % (0-5); MCH 29.3 pg (26.0-34.0); MCV 88.7 fL (80.0-100.0); MEAN PLATELET VOLUME 11.3 fL (7.4-10.4); MONOCYTES 11.5 % (2-11); NEUTROPHILS 63.2 % (40-80); PLATELET COUNT 184 10x3/uL (130-400); RBC 4.71 10x6/uL (4.20-6.10); RDW 15.5 % (11.5-14.5); WBC 8.8 10x3/uL (4.8-10.8)
[2018-12-07 11:43] LABS: CALC OSMOLALITY 286 mosm/kg (275-300); CALCIUM 8.6 mg/dL (8.5-10.1); CARBON DIOXIDE 27.3 mmol/L (21.0-32.0); CHLORIDE - SERUM 100 mmol/L (98-107); CREATININE - SERUM 0.9 mg/dL (0.6-1.3); GLUCOSE 320 mg/dL (74-106); POTASSIUM - SERUM 3.4 mmol/L (3.5-5.1); SODIUM 137 mmol/L (136-145); UREA NITROGEN 16 mg/dL (7-18); eGFR NON AFRICAN AMERICAN 88 mL/min (90-120)
--- NOTE | 2018-12-07 14:36 | NUR ---
1415 RECIEVED TO ROOM VIA STRETCHER FROM COMPLIANCE MGR WITH 5 FR EXOSEAL R/GROIN CDI NO BLEEDING OR HEMATOMA NOTED. PATIENT CONNECTED TO MONITOR FOR OBSERVATION WITH HR 60 BP 145/75 CHEST PAIN IS DENIED
--- NOTE | 2018-12-07 14:44 | NUR ---
RESTING QUIETLY WITH NO DISTRESS 5 FR EXOSEAL R/GROIN IS CDI WITH NO BLEEDING NOTED. INSTRUCTED PATIENT TO KEEP HEAD FLAT ON PILLOW WITH RLE STRAIGHT
--- NOTE | 2018-12-07 15:23 | NUR ---
RESTING QUIETLY WITH NO DISTRESS. 5 FR EXOSEAL R/GROIN CDI WITH VSS
--- NOTE | 2018-12-07 15:44 | NUR ---
REPOSITIONED TO [facility] UP 30 FOR COMFORT. 5 FR EXOSEAL R/GROIN IS CDI WITH NO BLEEDING NOTED. SANDWICH AND SODA TO BEDSIDE
--- NOTE | 2018-12-07 15:53 | NUR ---
VERBAL AND WRITTEN DISCHARGE GONE OVER WITH PATIENT AND FAMILY. ALL VERBALIZED UNDERSTANDING
--- NOTE | 2018-12-07 16:24 | NUR ---
PIV REMOVED WITH DRESSING APPLIED. 5 FR EXOSEAL R/GROIN IS CDI PATIENT DENIED CHEST PAIN UP TO GET DRESSED FOR DISCHARGE HOME
--- NOTE | 2018-12-07 16:28 | NUR ---
PATIENT LEFT VIA WC TO PARKING FOR TRANSPORT HOME. 5 FR EXOSEAL R/GROIN IS CDI AND CHEST PAIN IS DENIED
== END | disposition home or self-care (01) ==
LOC: D.CATH 10:56
PROVIDERS: ATTEND Internal Medicine Cardiovascular Disease
DX: I51.9 Heart disease, unspecified (principal); I25.10 Atherosclerotic heart disease of native coronary artery without angina pectoris; Z95.1 Presence of aortocoronary bypass graft; Z01.812 Encounter for preprocedural laboratory examination

== ENCOUNTER 2019-03-11 18:45 | Emergency (ER) | payer MEDICARE ==
[~2019-03-11] VITALS: Ht 182.9 cm; Wt 94.5 kg
[2019-03-11 18:53] VITALS: Ht 182.9 cm; Wt 94.5 kg
[2019-03-11 19:59] LABS: BASOPHILS 0.6 % (0-2); EOSINOPHILS 0.1 % (0-7); HEMATOCRIT 37.5 % (42.0-54.0); HEMOGLOBIN 12.7 g/dL (13.5-17.5); IMMATURE GRANULOCYTES 0.2 % (0-5); LYMPHOCYTES 14.2 % (15-50); MCHC 33.9 g/dL (31.0-37.0); MCV 88.7 fL (80.0-100.0); MEAN PLATELET VOLUME 11.7 fL (7.4-10.4); NEUTROPHILS 77.9 % (40-80); PLATELET COUNT 171 10x3/uL (130-400); RBC 4.23 10x6/uL (4.20-6.10); RDW 15.7 % (11.5-14.5); WBC 8.2 10x3/uL (4.8-10.8)
[2019-03-11 20:00] LABS: APPEARANCE CLEAR (CLEAR); BILIRUBIN NEGATIVE (NEGATIVE); COLOR YELLOW (YELLOW); GLUCOSE NEGATIVE (NEGATIVE); KETONE NEGATIVE (NEGATIVE); NITRITE NEGATIVE (NEGATIVE); PROTEIN 2+ mg/dL (NEGATIVE); RED CELLS - URINE NONE SEEN /hpf (0-5); SPECIFIC GRAVITY 1.015 (1.005-1.020); UROBILINOGEN NORMAL (NORMAL); WHITE CELLS - URINE NSEEN /hpf (0-5)
[2019-03-11 20:01] LABS: INR 1.25 (0.85-1.17); PROTIME 15.1 SECONDS (11.6-15.0)
[2019-03-11 20:08] LABS: ALBUMIN 3.2 g/dL (3.4-5.0); ALKALINE PHOSPHATASE 84 U/L (46-116); ALT (SGPT) 49 U/L (10-68); BILIRUBIN - TOTAL 0.93 mg/dL (0.2-1.3); CALC OSMOLALITY 275 mosm/kg (275-300); CALCIUM 8.9 mg/dL (8.5-10.1); CARBON DIOXIDE 24.8 mmol/L (21.0-32.0); CHLORIDE - SERUM 100 mmol/L (98-107); CREATININE - SERUM 1.1 mg/dL (0.6-1.3); POTASSIUM - SERUM 4.2 mmol/L (3.5-5.1); PROTEIN - SERUM 7.5 g/dL (6.4-8.2); SODIUM 134 mmol/L (136-145); UREA NITROGEN 25 mg/dL (7-18); eGFR NON AFRICAN AMERICAN 70 mL/min (90-120)
[2019-03-11 20:09] LABS: GLUCOSE 170 mg/dL (74-106)
[2019-03-11 20:21] LABS: AMYLASE - SERUM 28 U/L (25-115); CKMB 0.6 U/L (0.0-3.6); CREATINE KINASE 104 UL (21-232); LIPASE 96 U/L (73-393); PRO BNP 5912 pg/mL (0-125); TROPONIN-I 0.042 ng/mL (0.000-0.060)
[2019-03-11] MEDS ORDERED: ZOFRAN ODT4 MG/UDTAB PO (21:57)
[2019-03-11 22:22] VITALS: BP 149/77
== END 2019-03-11 22:23 | disposition home or self-care (01) ==
LOC: D.ER 18:45
PROVIDERS: Family Medicine
DX: R11.2 Nausea with vomiting, unspecified (principal); K80.50 Calculus of bile duct without cholangitis or cholecystitis without obstruction; K80.80 Other cholelithiasis without obstruction

== ENCOUNTER 2019-03-15 16:07 | Inpatient (IN) | payer MEDICARE ==
[~2019-03-15] VITALS: Ht 182.9 cm; Wt 96.4 kg
[~2019-03-15 16:07] MED LIST changes: +ZOFRAN ODT4 MG/UDTAB PO
[2019-03-15 17:06] VITALS: Ht 182.9 cm; Wt 96.4 kg
[2019-03-15 17:52] LABS: BASOPHILS 0.6 % (0-2); EOSINOPHILS 0.5 % (0-7); HEMATOCRIT 34.6 % (42.0-54.0); HEMOGLOBIN 11.9 g/dL (13.5-17.5); IMMATURE GRANULOCYTES 0.7 % (0-5); MCH 30.1 pg (26.0-34.0); MCHC 34.4 g/dL (31.0-37.0); MCV 87.4 fL (80.0-100.0); MEAN PLATELET VOLUME 11.1 fL (7.4-10.4); MONOCYTES 8.4 % (2-11); NEUTROPHILS 72.8 % (40-80); RBC 3.96 10x6/uL (4.20-6.10); RDW 15.2 % (11.5-14.5); WBC 12.7 10x3/uL (4.8-10.8)
[2019-03-15 18:12] LABS: ALBUMIN 2.9 g/dL (3.4-5.0); ANION GAP 9.2 mmol/L (8-16); BILIRUBIN - TOTAL 1.08 mg/dL (0.2-1.3); CALCIUM 8.5 mg/dL (8.5-10.1); CARBON DIOXIDE 32.7 mmol/L (21.0-32.0); CREATININE - SERUM 1.3 mg/dL (0.6-1.3); PROTEIN - SERUM 7.3 g/dL (6.4-8.2)
[2019-03-15 18:15] LABS: POTASSIUM - SERUM 2.9 mmol/L (3.5-5.1)
[2019-03-15 18:19] LABS: PLATELET COUNT 227 10x3/uL (130-400)
--- NOTE | 2019-03-15 18:21 | NUR ---
RECEIVED CALL FROM LAB PT K+ IS 2.9. CALLED DR ALCANTARA IN [facility] TO RESULTS, PER DR ALCANTARA PT MAY HAVE 40MEQ OF K+ PO DAILY X 2 DAYS. ORDER PLACED, CONTINUE WITH PLAN OF CARE
--- NOTE | 2019-03-15 19:30 | NUR ---
PT SITTING UP IN BED WITHOUT DISTRESS, FAMILY AT BEDSIDE. DENIES PAIN. INFORMED PT HE HAD DIRECTOR ENGINEERING ORDERED WHEN READY IF HAVING ANY PAIN, PT VERBALIZED UNDERSTANDING. IV LEFT FA INFUSING MS @ 125. PT REQUESTED AND GIVEN WATER AND ICE CREAM. DENIES OTHER NEEDS AT THIS TIME. CL IN REACH, WILL CTM
[2019-03-15 20:00] VITALS: BP 103/64
[2019-03-16] VITALS: BP 117/57
[2019-03-16 04:00] VITALS: BP 125/58
[2019-03-16 06:47] LABS: BASOPHILS 0.5 % (0-2); EOSINOPHILS 0.7 % (0-7); HEMATOCRIT 33.1 % (42.0-54.0); HEMOGLOBIN 11.3 g/dL (13.5-17.5); IMMATURE GRANULOCYTES 0.9 % (0-5); LYMPHOCYTES 18.2 % (15-50); MCH 29.6 pg (26.0-34.0); MCHC 34.1 g/dL (31.0-37.0); MCV 86.6 fL (80.0-100.0); MEAN PLATELET VOLUME 11.1 fL (7.4-10.4); MONOCYTES 9.2 % (2-11); NEUTROPHILS 70.5 % (40-80); PLATELET COUNT 225 10x3/uL (130-400); RBC 3.82 10x6/uL (4.20-6.10); RDW 15.3 % (11.5-14.5); WBC 12.6 10x3/uL (4.8-10.8)
[2019-03-16 06:56] LABS: ANION GAP 10.5 mmol/L (8-16); CALCIUM 7.9 mg/dL (8.5-10.1); CARBON DIOXIDE 28.2 mmol/L (21.0-32.0); CREATININE - SERUM 1.3 mg/dL (0.6-1.3)
[2019-03-16 07:12] LABS: POTASSIUM - SERUM 2.7 mmol/L (3.5-5.1)
--- NOTE | 2019-03-16 08:00 | NUR ---
PT K+ IS 2.7 LAB WAS CALLED TO RUN MAGNESIUM WELL PENDING RESULTS CONTINUE WITH PLAN OF CARE
[2019-03-16 08:47] VITALS: BP 105/60
[2019-03-16 14:10] VITALS: BP 115/50
[2019-03-16 16:03] VITALS: BP 113/55
--- NOTE | 2019-03-16 16:26 | NUR ---
I have reviewed this patient and I concur with the Shift Assessment completed by the Licensed Practical Nurse today this shift.
--- NOTE | 2019-03-16 18:02 | NUR ---
PT HAS BEEN IN AND OUT OF RESTROOM TODAY SEVERAL TIMES DUE TO DIARRHEA, PT HAS REQUESTED TO HAVE SOMETHING TO HELP STOP THE DIARRHEA, ADVISED PT I WOULD HAVE DOCTOR PAGED. PT SCHEDULED FOR LAP CHRISTIAN IN AM. PT UP AD KLAUS, NO FAMILY AT BEDSIDE. GAVE PT SOME BUTT CREAM TO HELP WITH IRRITATION FOR NOW. CONTINUE WITH PLAN OF CARE, CONSENTS SIGNED FOR PROCEDURE
--- NOTE | 2019-03-16 19:30 | NUR ---
PT ALERT AND ORIENTED. USES CALL LIGHT APPROPRIATELY. SPOKE WITH PATIENT ABOUT UPCOMING SURGERY TOMORROW. PT DOES NOT HAVE ANY QUESTIONS AND UNDERSTANDS NPO STATUS. PT CURRENTLY ON CLEAR LIQUID DIET. COMPLIANT WITH THAT ORDER. HAS LEFT FOREARM IV THAT IS PATENT AND INFUSING NS WITH 40K. INSERTION SITE IS WITHOUT REDNESS OR TENDERNESS. STATES HE HAS "UPSET STOMACH" BUT DENIES WANTING MEDICINE. PT REFUSES GOWN AT THIS TIME. SPOKE WITH PATIENT ABOUT CHANGING INTO GOWN AND HAVING HIBBA CLEANSE PERFORMED IN THE MORNING PART OF SURGERY PROTOCAL. PT VERBALIZES UNDERSTANDING. DENIES FURTHER NEEDS AT THIS TIME. BED IS LOWERED AND LOCKED. CALL LIGHT IN REACH OF PATIENT. CONTINUE WITH PLAN OF CARE.
[2019-03-16 20:00] VITALS: BP 114/60
[2019-03-17] VITALS (7 sets, daily range): BP systolic 116–168; BP diastolic 55–83
[2019-03-17 05:03] LABS: BASOPHILS 0.5 % (0-2); EOSINOPHILS 1.7 % (0-7); HEMATOCRIT 33.1 % (42.0-54.0); HEMOGLOBIN 11.1 g/dL (13.5-17.5); IMMATURE GRANULOCYTES 1.3 % (0-5); LYMPHOCYTES 17.4 % (15-50); MCH 29.4 pg (26.0-34.0); MCHC 33.5 g/dL (31.0-37.0); MCV 87.8 fL (80.0-100.0); MONOCYTES 11.5 % (2-11); NEUTROPHILS 67.6 % (40-80); PLATELET COUNT 226 10x3/uL (130-400); RBC 3.77 10x6/uL (4.20-6.10); RDW 15.4 % (11.5-14.5)
[2019-03-17 05:51] LABS: ALBUMIN 2.6 g/dL (3.4-5.0); ANION GAP 13.7 mmol/L (8-16); BILIRUBIN - TOTAL 1.46 mg/dL (0.2-1.3); CALCIUM 7.5 mg/dL (8.5-10.1); CARBON DIOXIDE 26.1 mmol/L (21.0-32.0); CREATININE - SERUM 1.1 mg/dL (0.6-1.3); POTASSIUM - SERUM 3.8 mmol/L (3.5-5.1); PROTEIN - SERUM 6.6 g/dL (6.4-8.2)
--- NOTE | 2019-03-17 15:12 | NUR ---
I have reviewed this patient and I concur with the Shift Assessment completed by the Licensed Practical Nurse today this shift.
--- NOTE | 2019-03-17 19:30 | NUR ---
PT ALERT AND ORIENTED. DAUGHTER AT BEDSIDE. ABDOMEN DISTENDED. FOUR LAP SITES NOTED TO ABDOMEN WITH NO DRAINAGE TO DRESSING. DENIES PAIN OR DISCOMFORT. STATES THAT HE DOES NOT WANT PAIN MEDICINE. ENCOURAGE PT TO AMBULATE. PT AMBULATED UNIT WITH ASSISTANCE BEFORE RETURNING BACK TO BED. DENIES FURTHER NEEDS. HAS CALL LIGHT IN HAND AND USES WHEN IN NEED. STABLE AT THIS TIME. LEFT FOREARM IV REMAINS PATENT WITH NO REDNESS OR TENDERNESS NOTED TO THE INSERTION SITE. CONTINUE PLAN OF CARE AT THIS TIME.
[2019-03-18 01:15] VITALS: BP 142/60
[2019-03-18 05:10] VITALS: BP 142/67
[2019-03-18 05:46] LABS: BASOPHILS 0.3 % (0-2); EOSINOPHILS 0.3 % (0-7); HEMATOCRIT 32.7 % (42.0-54.0); HEMOGLOBIN 10.9 g/dL (13.5-17.5); IMMATURE GRANULOCYTES 1.5 % (0-5); LYMPHOCYTES 15.4 % (15-50); MCH 29.1 pg (26.0-34.0); MCHC 33.3 g/dL (31.0-37.0); MCV 87.2 fL (80.0-100.0); MEAN PLATELET VOLUME 10.7 fL (7.4-10.4); MONOCYTES 8.9 % (2-11); NEUTROPHILS 73.6 % (40-80); PLATELET COUNT 260 10x3/uL (130-400); RBC 3.75 10x6/uL (4.20-6.10); RDW 15.3 % (11.5-14.5); WBC 14.6 10x3/uL (4.8-10.8)
[2019-03-18 06:10] LABS: ALBUMIN 2.5 g/dL (3.4-5.0); ALKALINE PHOSPHATASE 74 U/L (46-116); ALT (SGPT) 69 U/L (10-68); BILIRUBIN - TOTAL 1.25 mg/dL (0.2-1.3); CALCIUM 7.4 mg/dL (8.5-10.1); CARBON DIOXIDE 26.6 mmol/L (21.0-32.0); CHLORIDE - SERUM 97 mmol/L (98-107); POTASSIUM - SERUM 3.8 mmol/L (3.5-5.1); PROTEIN - SERUM 6.6 g/dL (6.4-8.2); SODIUM 133 mmol/L (136-145); UREA NITROGEN 19 mg/dL (7-18); eGFR NON AFRICAN AMERICAN 78 mL/min (90-120)
[2019-03-18 06:13] LABS: CALC OSMOLALITY 278 mosm/kg (275-300); GLUCOSE 289 mg/dL (74-106)
--- NOTE | 2019-03-18 16:29 | MORECARE ---
CASE MANAGEMENT DISCHARGE SUMMARY PATIENT: AGUILA YBARRA UNIT: [id number] ADM DATE: 03/15/19 AGE: 74 : [birth year] SEX: M ROOM/BED: D.2224 AUTHOR: MARNIE WATSON PHYSICIAN: REFERRING PHYSICIAN: DEACON CREWS MD DATE OF SERVICE: 03/18/19 Discharge Plan Patient Name: AGUILA YBARRA [facility] : 1945 Planned Disposition: Home Anticipated Discharge Date: 03/18/19 Discharge Date: 03/18/2019 Expected LOS: 3 Initial Reviewer: [email or web address] Initial Review Date: 03/15/2019 Generated: 03/18/19 5:28 pm Patient Name: AGUILA YBARRA Page [phone] at 1629 All edits/amendments must be made on the electronic document DICTATION DATE: 03/18/198 ENTRY LEVEL FINANCE: SIMIN 03/18/19 1628 RPT#: [id number] DC DATE:03/18/19 STATUS: DIS IN [facility] [address] [place] [address] END OF REPORT
--- NOTE | 2019-03-18 16:35 | MORECARE ---
CASE MANAGEMENT DISCHARGE SUMMARY PATIENT: AGUILA YBARRA UNIT: [id number] ADM DATE: 03/15/19 AGE: 74 : 47 SEX: M ROOM/BED: D.2224 AUTHOR: MARNIE WATSON PHYSICIAN: REFERRING PHYSICIAN: DEACON CREWS MD DATE OF SERVICE: 03/18/19 Discharge Plan Patient Name: AGUILA YBARRA Facility: [facility]:[place] : 1945 Planned Disposition: Home Anticipated Discharge Date: 03/18/19 Discharge Date: 03/18/2019 Expected LOS: 3 Initial Reviewer: [email or web address] Initial Review Date: 03/15/2019 Generated: 03/18/19 5:35 pm Comments DCP- Discharge Planning Updated by [email or web address]: Saba Gold on 03/18/19 3:[address] PATIENT WAS HELD OVERNIGHT DUE TO NAUSEA POST OP. HE HAD ZOFRAN ORDERED PRN. THE DOCTOR ALSO ORDERED PHENERGAN. HE WAS DRESSED AMBULATING OFF THE UNIT THIS AM AT 0830 WHEM CM ARRIVED. Last DP export: 03/18/19 3:28 pm Patient Name: AGUILA YBARRA Page [phone] at 1635 All edits/amendments must be made on the electronic document DICTATION DATE: 03/18/19 1634 CARPET INSTALLER HELPER: SIMIN 03/18/19 1634 RPT#: [id number] DC DATE:03/18/19 STATUS: DIS IN [facility] [address] [place] [address] END OF REPORT
--- NOTE | 2019-04-07 12:15 | OP ---
PATIENT NAME: AGUILA YBARRA MEDICAL RECORD: [id number] :[birth year] LOCATION:D.MS Patricia2224 ADMISSION DATE:03/15/19 SURGEON: DEACON CREWS MD DATE OF OPERATION: 03/17/2019 PREOPERATIVE DIAGNOSES: 1. Acute cholecystitis. 2. Diabetes mellitus. 3. Chronic obstructive pulmonary disease. 4. Coronary artery disease. POSTOPERATIVE DIAGNOSES: 1. Acute cholecystitis. 2. Diabetes mellitus. 3. Chronic obstructive pulmonary disease. 4. Coronary artery disease. PROCEDURE PERFORMED: Laparoscopic cholecystectomy. SURGEON: Deacon Crews MD REPORT OF PROCEDURE: The patient's abdomen was prepped and draped in sterile fashion. A cutdown was made on the superior aspect of the umbilicus, 0 Vicryls were placed in the fascia bilaterally and the fascia was incised with 15-blade. I then bluntly entered the peritoneal cavity and placed a 12-mm Theresa port. Under direct visualization, a 5-mm trocar was placed in the epigastrium and two more 5-mm trocars were placed in the right subcostal region. The patient had some icogs-bz-vytqrjd inflammation of the right upper quadrant with old scar tissue around the gallbladder of the omentum. There was some inflammatory fluid that was present through the abdomen with some gelatinous material within it, most of this was up around the right upper quadrant. I did not see any evidence of any bile. The patient had no sign of any purulence. We suctioned and irrigated out this fluid. We then dissected the omentum off of the gallbladder, I can see the gallbladder was contracted and had some xidlt-tg-vxmtdna inflammatory changes. The cystic artery and cystic duct were dissected free and these were clipped proximally and distally and ligated in standard fashion. The gallbladder was then taken off the liver bed and placed into an Endo Catch bag. The liver bed was treated with electrocautery to stop any bleeding that was present. The liver itself appeared to be inflamed and swollen with no signs of any cirrhotic changes. The remainder of the abdomen was inspected. The anterior aspect of the stomach appeared to be normal with no signs of any inflammations, perforations or masses. The duodenal region had some inflammatory changes present where it was near the gallbladder, but there are no signs of any perforation or drainage. This small bowel appeared to be normal in caliber and did not have any evidence of any necrotic or ischemic changes. There was some fluid down in the pelvis, which again was not bilious or purulent. At this point, the ports and insufflation were then removed and the gallbladder was taken out through the umbilicus. The umbilical fascia was closed with interrupted 0 Vicryls times 3. The wounds were then irrigated out with normal saline and infused with 10 mL of 0.25% Marcaine with epinephrine. The skin incisions were closed with subcutaneous 5-0 Monocryl and dressed appropriately. COMPLICATIONS: None. OPERATIVE REPORT [id number] AGUILA YBARRA CONDITION: Stable. ANESTHESIA: General endotracheal and local. BLOOD LOSS: 30 mL. TRANSINT:[id number] Voice Confirmation ID: [id number] DOCUMENT ID: [id number] DEACON CREWS MD at 1215 CC: [id number] DICTATION DATE: 03/17/19 1004 INSPECTOR PACKER GLASS CONTAINER: 03/17/19 1016 DIS IN 03/18/19 [id number] [place] [address]
--- NOTE | 2019-06-01 13:23 | DS ---
PATIENT:AGUILA YBARRA :[birth year] MEDICAL RECORD: [id number] DISCHARGE SUMMARY ADMISSION DATE: 03/15/19 DISCHARGE DATE: 03/18/19 DATE OF ADMISSION: 03/16/2019 DATE OF DISCHARGE: 03/18/2019 ADMISSION DIAGNOSES: 1. Acute cholecystitis. 2. Diabetes mellitus. 3. Chronic obstructive pulmonary disease. 4. Coronary artery disease. DISCHARGE DIAGNOSES: 1. Acute cholecystitis. 2. Diabetes mellitus. 3. Chronic obstructive pulmonary disease. 4. Coronary artery disease. PROCEDURE: Laparoscopic cholecystectomy on 03/17/2019 CONSULTATIONS: None. REPORT OF HOSPITALIZATION: The patient was admitted to the hospital with acute cholecystitis. He was given fluid resuscitation and IV antibiotics and the following day, he was taken to the operating room for a successful laparoscopic cholecystectomy. He was then discharged later that day in stable condition. COMPLICATIONS: None. DISCHARGE INSTRUCTIONS: He will return to clinic or call with any questions or concerns, fevers, chills, nausea, vomiting or worsening abdominal pain. ACTIVITIES: No heavy lifting or straining for 2 weeks postoperatively. FOLLOWUP: In clinic with me in in 2-3 weeks. DISCHARGE MEDICATIONS: Resume home medications. TRANSINT:[id number] Voice Confirmation ID: [id number] DOCUMENT ID: [id number] DEACON CREWS MD at 1323 CC: [id number] DICTATION DATE: 05/30/19 1018 CROP CONSULTANT: 05/30/19 2306 DIS IN 03/18/19 [id number] [place] [address]
== END 2019-03-18 11:42 | disposition home or self-care (01) | DRG 419 ==
LOC: D.MS 16:07
PROVIDERS: ADMIT Surgery; ATTEND Surgery
PROC: 0FT44ZZ Resection of Gallbladder, Percutaneous Endoscopic Approach (ICD-10-PCS; principal; 2019-03-17 10:30)
DX: K81.0 Acute cholecystitis (principal); E11.8 Type 2 diabetes mellitus with unspecified complications; J44.9 Chronic obstructive pulmonary disease, unspecified; I25.10 Atherosclerotic heart disease of native coronary artery without angina pectoris; Z98.61 Coronary angioplasty status

== ENCOUNTER → 2019-08-24 08:57 | Outpatient (CLI) | payer MEDICARE ==
[2019-03-15 17:06] VITALS: BMI 28.8
== END | disposition home or self-care (01) ==
LOC: D.US 08:57
PROVIDERS: ATTEND Internal Medicine Cardiovascular Disease
DX: I65.23 Occlusion and stenosis of bilateral carotid arteries (principal)

== ENCOUNTER → 2020-02-06 12:59 | Outpatient (CLI) | payer MEDICARE ==
[2019-03-15 17:06] VITALS: BMI 28.8
== END | disposition home or self-care (01) ==
LOC: D.HCCECHO 12:59
PROVIDERS: ATTEND Internal Medicine Cardiovascular Disease
DX: I42.9 Cardiomyopathy, unspecified (principal)

== ENCOUNTER → 2020-11-11 13:50 | Outpatient (CLI) | payer MEDICARE ==
[2019-03-15 17:06] VITALS: BMI 28.8
== END | disposition home or self-care (01) ==
LOC: D.US 13:50
PROVIDERS: ATTEND Thoracic Surgery (Cardiothoracic Vascular Surgery)
DX: I65.23 Occlusion and stenosis of bilateral carotid arteries (principal); I73.9 Peripheral vascular disease, unspecified